=== PATIENT | female | born 1965 | race Caucasian/White ===

== ENCOUNTER 2018-04-11 07:25 | Day surgery (SDC) | payer BC ==
[~2018-04-11] VITALS: Ht 165.1 cm; Wt 69.1 kg
[2018-04-11] MEDS ORDERED: Vitamin E & K S52 ML PO (08:01)
[2018-04-11] MEDS ORDERED: CALCA400CH PO (08:01)
[2018-04-11] MEDS ORDERED: ALLER-TEC D 5-1 EACH PO (08:02)
[2018-04-11] MEDS ORDERED: L-LYSINE500 MG PO (08:03)
[2018-04-11] MEDS ORDERED: KRILL OIL500 MG PO (08:03)
[2018-04-11] MEDS ORDERED: PROBIOTIC1 EAC3 (08:03)
== END 2018-04-11 09:19 | disposition home or self-care (01) ==
LOC: ORSCSDS 07:25
PROVIDERS: Surgery
PROC: 0DJD8ZZ Inspection of Lower Intestinal Tract, Via Natural or Artificial Opening Endoscopic (ICD-10-PCS; principal; 2018-04-11 08:45)
DX: Z12.11 Encounter for screening for malignant neoplasm of colon (principal)
CPT/HCPCS: J7120

== ENCOUNTER 2019-08-15 07:57 | Emergency (ER) | payer BC ==
[~2019-08-15] VITALS: Ht 165.1 cm; Wt 70.3 kg
[~2019-08-15 07:57] MED LIST: ALLER-TEC D 5-1 EACH PO; CALCA400CH PO; KRILL OIL500 MG PO; L-LYSINE500 MG PO; PROBIOTIC1 EAC3; Vitamin E & K S52 ML PO
[2019-08-15 08:54] LABS: BASOPHILS ABSOLUTE AUTO 0.04 K/mm3 (0.00-0.23); BASOPHILS PERCENT AUTO 1 % (0-2); EOSINOPHILS ABSOLUTE AUTO 0.01 K/mm3 (0.00-0.68); EOSINOPHILS PERCENT AUTO 0 % (0-6); Hematocrit 42.3 % (33.0-51.0); Hemoglobin 14.6 g/dL (11.5-16.0); IMMATURE GRAN ABSOLUTE AUTO 0.01 K/mm3 (0.00-0.10); IMMATURE GRAN PERCENT AUTO 0 % (0-1); LYMPHOCYTES ABSOLUTE AUTO 1.34 K/mm3 (0.84-5.20); LYMPHOCYTES PERCENT AUTO 19 % (21-46); MONOCYTES ABSOLUTE AUTO 0.35 K/mm3 (0.16-1.47); MONOCYTES PERCENT AUTO 5 % (4-13); Mean Corpuscular HGB 29.7 pg (26.0-34.0); Mean Corpuscular HGB Conc 34.5 g/dL (31.5-36.5); Mean Corpuscular Volume 86 fL (80-100); Mean Platelet Volume 9.9 fL (9.1-12.4); NEUTROPHILS PERCENT AUTO 76 % (41-73); Platelet Count 211 K/mm3 (150-400); RDW Coefficient Variation 12.1 % (11.7-14.2); RDW Standard Deviation 38.3 fL (35.1-46.3); Red Blood Cell Count 4.91 M/mm3 (3.80-5.20); White Blood Cell Count 7.15 K/mm3 (4.00-11.30)
[2019-08-15 09:12] LABS: Alanine Aminotransfer (ALT/SGP 26 U/L (12-78); Albumin, Blood 4.3 g/dL (3.4-5.0); Albumin/Globulin Ratio 1.3 (0.8-1.8); Alk Phos 62 U/L (50-136); Anion Gap 4 mmol/L (6-16); Aspartate Aminotrans (AST/SGOT 20 U/L (12-37); Bilirubin, Total 0.4 mg/dL (0.1-1.0); Blood Urea Nitrogen 16 mg/dL (8-24); Bun/Creatinine Ratio 30.1 (12.0-20.0); CO2, Blood 26 mmol/L (21-32); Chloride, Blood 110 mmol/L (98-108); Creatinine, Blood 0.53 mg/dL (0.40-1.00); Globulin, Blood 3.2 g/dL (2.2-4.0); Glomerular Filtration Rate >60 (60-); Glucose, Blood 90 mg/dL (70-99); Potassium, Blood 3.4 mmol/L (3.5-5.5); Sodium, Blood 140 mmol/L (136-145); Total Protein, Blood 7.5 g/dL (6.4-8.2); Troponin I <0.015 ng/mL (0.000-0.040)
== END 2019-08-15 11:01 | disposition home or self-care (01) ==
LOC: ER 07:57
PROVIDERS: Physician Assistant
DX: R00.2 Palpitations (principal)
CPT/HCPCS: 71046; 80053; 83880; 84484; 85025; 93005; 93010; 99285-25

== ENCOUNTER → 2019-10-30 | Outpatient (CLI) | payer BC ==
[2019-10-30 10:55] LABS: Creatinine Urine 40.3 mg/dL (27.00-270.00)
== END | disposition home or self-care (01) ==
LOC: LAB 09:08 → LAB SHORT 09:08 → LAB FUT 10-23 10:45
PROVIDERS: Internal Medicine Endocrinology, Diabetes & Metabolism
DX: E26.9 Hyperaldosteronism, unspecified (principal)
CPT/HCPCS: 81050; 82570; 84300

== ENCOUNTER 2020-10-23 06:54 | Day surgery (SDC) | payer BC ==
[~2020-10-23] VITALS: Ht 165.1 cm; Wt 71.4 kg
[~2020-10-23 06:54] MED LIST changes: +DHEA PO; +DILT180 PO; +MULVITA PO; +POTA20PAC PO; +TOCO1000 PO; +Vitamin D2000 UNIT PO; +[UNRECOGNIZED DRUG - OTHER] PO; +[UNRECOGNIZED DRUG - OTHER] TOP
--- NOTE | 2020-10-23 08:01 | NUR ---
assumed care of aptient no changes waiting for or crew to round on patient
--- NOTE | 2020-10-23 09:24 | NUR ---
10/23/20 09[address] Luo [address] BY DR XAVIER INTRAOPERATIVELY
--- NOTE | 2020-10-23 13:08 | NUR ---
POST OP: REPORT RECEIVED FROM PATENT PARALEGAL KIM. PT TO UNIT AT ABOUT 1100. VSS, PT A/O. SURGICAL SITES WNL, SCANT VAGINAL BLEED. PT DENIES N/V AND PAIN. DUBOIS DC'D AT THIS TIME. PT ABLE TO TAKE IN ICE CHIPS, WILL CTM
[2020-10-23] MEDS ORDERED: ACET500 PO (13:57)
[2020-10-23] MEDS ORDERED: IBU600 MG PO (13:59)
[2020-10-23] MEDS ORDERED: OXAYDO5 M2 PO (14:02)
--- NOTE | 2020-10-23 14:40 | NUR ---
DISCHARGE: PT DOING WELL POST OP, HAS VOIDED AND WALKED IN ROOM. LESLIE DIET AND DENIES ANY PAIN.MINIMAL VAGINAL BLEED. PACKET PRINTED AND PT EDUCATED. NO SCRIPTS NEEDED AND PT DENIED NEED FOR ANY MEDS TO BE FAXED. PT LEFT UNIT AT 1440 ON FOOT WITH . PT DENIED NEED FOR WHEELCHAIR.
== END 2020-10-23 14:34 | disposition home or self-care (01) ==
LOC: ORSCMMR 06:54 → ORD 08:30 → SURS 11:02 → ORSCMMR 14:34
PROVIDERS: Obstetrics & Gynecology
PROC: 0UT7FZZ Resection of Bilateral Fallopian Tubes, Via Natural or Artificial Opening With Percutaneous Endoscopic Assistance (ICD-10-PCS; principal; 2020-10-23 08:30)
PROC: 0UT9FZZ Resection of Uterus, Via Natural or Artificial Opening With Percutaneous Endoscopic Assistance (ICD-10-PCS; principal; 2020-10-23 08:30)
PROC: 0UT2FZZ Resection of Bilateral Ovaries, Via Natural or Artificial Opening With Percutaneous Endoscopic Assistance (ICD-10-PCS; principal; 2020-10-23 08:30)
DX: D25.9 Leiomyoma of uterus, unspecified (principal); N83.292 Other ovarian cyst, left side; N83.202 Unspecified ovarian cyst, left side; R10.2 Pelvic and perineal pain; Q50.5 Embryonic cyst of broad ligament; I10 Essential (primary) hypertension; I47.1 Supraventricular tachycardia; Z79.899 Other long term (current) drug therapy
CPT/HCPCS: 88307; A9270; J0171; J0690; J1100; J1170; J1885; J2405; J2704; J2765; J3010; J7120

== ENCOUNTER 2024-03-10 10:37 | Emergency (ER) | payer BC ==
[~2024-03-10] VITALS: Ht 167.6 cm; Wt 63.5 kg
[~2024-03-10 10:37] MED LIST changes: +ACET500 PO; +IBU600 MG PO; +OXAYDO5 M2 PO
[2024-03-10] MEDS ORDERED: NS 1,000 ML IV SCH (11:10)
[2024-03-10 11:32] LABS: BASOPHILS ABSOLUTE AUTO 0.02 K/mm3 (0.00-0.23); BASOPHILS PERCENT AUTO 0 % (0-2); EOSINOPHILS ABSOLUTE AUTO 0.02 K/mm3 (0.00-0.68); EOSINOPHILS PERCENT AUTO 0 % (0-6); Hematocrit 44.9 % (33.0-51.0); Hemoglobin 15.8 g/dL (11.5-16.0); IMMATURE GRAN ABSOLUTE AUTO 0.03 K/mm3 (0.00-0.10); IMMATURE GRAN PERCENT AUTO 0 % (0-1); LYMPHOCYTES ABSOLUTE AUTO 2.01 K/mm3 (0.84-5.20); LYMPHOCYTES PERCENT AUTO 23 % (21-46); MONOCYTES ABSOLUTE AUTO 0.53 K/mm3 (0.16-1.47); MONOCYTES PERCENT AUTO 6 % (4-13); Mean Corpuscular HGB 29.5 pg (26.0-34.0); Mean Corpuscular HGB Conc 35.2 g/dL (31.5-36.5); Mean Corpuscular Volume 84 fL (80-100); Mean Platelet Volume 9.2 fL (9.1-12.4); NEUTROPHILS ABSOLUTE AUTO 6.12 K/mm3 (1.96-9.15); NEUTROPHILS PERCENT AUTO 70 % (41-73); Platelet Count 263 K/mm3 (150-400); RDW Coefficient Variation 12.1 % (11.7-14.2); RDW Standard Deviation 36.8 fL (35.1-46.3); Red Blood Cell Count 5.35 M/mm3 (3.80-5.20); White Blood Cell Count 8.73 K/mm3 (4.00-11.30)
[2024-03-10 11:54] LABS: Albumin, Blood 4.3 g/dL (3.4-5.0); Albumin/Globulin Ratio 1.3 (0.8-1.8); Bilirubin, Total 0.5 mg/dL (0.1-1.0); Bun/Creatinine Ratio 20.4 (12.0-20.0); Calcium, Blood 9.7 mg/dL (8.5-10.1); Creatinine, Blood 0.64 mg/dL (0.40-1.00); Globulin, Blood 3.4 g/dL (2.2-4.0); Magnesium, Blood 2.1 mg/dL (1.6-2.4); Total Protein, Blood 7.7 g/dL (6.4-8.2)
[2024-03-10] MEDS ORDERED: Meclizine HCl 25 MG Tab PO ONE (12:35)
[2024-03-10 13:30] VITALS: BP 158/103
[2024-03-10] MEDS ORDERED: MECL25 PO (13:42)
== END 2024-03-10 13:58 | disposition home or self-care (01) ==
LOC: ER 10:37
PROVIDERS: Physician Assistant
DX: H81.10 Benign paroxysmal vertigo, unspecified ear (principal); E86.0 Dehydration; R19.7 Diarrhea, unspecified; Z79.899 Other long term (current) drug therapy
CPT/HCPCS: 80053; 83735; 85025; 96360; 99284-25; A9270; J7030